=== PATIENT | male | born 1940 | race Caucasian/White ===

== ENCOUNTER 2025-04-03 10:19 | Observation (INO) ==
--- NOTE | 2025-02-28 13:31 | PAT Medication Instructions ---
Medication Instructions Date of Service February 28, 2025 Home Medications allopurinol 100 mg tablet 100 mg PO QAM allopurinol 300 mg tablet 300 mg PO QAM amlodipine 10 mg tablet 10 mg PO QAM amoxicillin 500 mg tablet 2,000 mg PO UD PRN carboxymethylcellulose sodium 1 % eye liquid gel drops 1 drp ophthalmic (eye) BID PRN cholecalciferol (vitamin D3) 50 mcg (2,000 unit) tablet 50 mcg PO BID cyclosporine 0.05 % eye drops 1 drp ophthalmic (eye) Q12H empagliflozin 25 mg tablet 25 mg PO QAM glipizide 5 mg tablet 5 mg PO BID lisinopril 2.5 mg tablet 2.5 mg PO HS menthol 10.5 % topical spray (Biofreeze (menthol)) 1 spray topical UD PRN multivitamin 1 tab PO QAM omega 9-gec-nuo-fish oil 60 mg-90 mg-500 mg capsule (Fish Oil) 2 cap PO BID pilocarpine HCl 5 mg tablet 5 mg PO BID vit C 250 mg-vit E 90 mg-zinc 40 mg-copper 1 ny-toohjb-aetpml capsule (PreserVision AREDS-2) 1 tab PO BID STOP 3 days before surgery empagliflozin 25 mg tablet 25 mg PO QAM Continue as directed amoxicillin 500 mg tablet 2,000 mg PO UD PRN(if needed) STOP taking 2 weeks before surgery (or as soon as possible if surgery is within 2 weeks) omega 8-jdx-nln-fish oil 60 mg-90 mg-500 mg capsule (Fish Oil) 2 cap PO BID vit C 250 mg-vit E 90 mg-zinc 40 mg-copper 1 lv-eiaevp-ilrcqd capsule (PreserVision AREDS-2) 1 tab PO BID STOP taking 24 hours before surgery menthol 10.5 % topical spray (Biofreeze (menthol)) 1 spray topical UD PRN DO NOT take the morning of surgery cholecalciferol (vitamin D3) 50 mcg (2,000 unit) tablet 50 mcg PO BID glipizide 5 mg tablet 5 mg PO BID multivitamin 1 tab PO QAM pilocarpine HCl 5 mg tablet 5 mg PO BID Take morning of surgery With a small sip of water, OTHERWISE NOTHING TO EAT OR DRINK AFTER MIDNIGHT: allopurinol 100 mg tablet 100 mg PO QAM allopurinol 300 mg tablet 300 mg PO QAM amlodipine 10 mg tablet 10 mg PO QAM carboxymethylcellulose sodium 1 % eye liquid gel drops 1 drp ophthalmic (eye) BID PRN(if needed) cyclosporine 0.05 % eye drops 1 drp ophthalmic (eye) Q12H Take evening before surgery carboxymethylcellulose sodium 1 % eye liquid gel drops 1 drp ophthalmic (eye) BID PRN(if needed) cholecalciferol (vitamin D3) 50 mcg (2,000 unit) tablet 50 mcg PO BID cyclosporine 0.05 % eye drops 1 drp ophthalmic (eye) Q12H glipizide 5 mg tablet 5 mg PO BID lisinopril 2.5 mg tablet 2.5 mg PO HS pilocarpine HCl 5 mg tablet 5 mg PO BID Other Notes If you have any questions please call us at [phone] or [phone] or [phone] or [phone]
--- NOTE | 2025-03-09 11:39 | Anesthesiology Consultation ---
Date of Service March 09, 2025 Assessment & Plan (1) Encounter for pre-operative examination: - Check BSG DOS - Infectious disease screening: Per assessment on 02/27/25- No known recent infectious disease contacts or current infectious disease symptoms. - Outpatient joint assessment: Pt currently scheduled for inpatient pathway. If surgeon requests review for outpatient joint pathway, patient is not recommended candidate for outpatient joint program from anesthesia standpoint based on available information. - Cardiology visit (10/27/23): "Hypertension: BP remains within normal limits today.. Will continue current medications.. Aortic regurgitation: Trivial on echo in August. No change from multiple prior echocardiograpms.. No need to repeat routine echocardiography at this point for this, but will be checked nonetheless as we follow his LV function as noted below.. Cardiomyopathy w/reduced LV systolic function.. Asymptomatic.. LVEF was lower limits of normal on recent echocardiogram.. No additional testing required at this time.. Will repeat an echo in two years.. Follow up: two years" - Preop testing: CXR done 03/09/25 noted "early pneumonia versus atelectasis or scarring left lung base." Also, creatinine elevated at 1.56. No reported history of CKD. Note written to PCP regarding abnormal preop CXR + elevated creatinine- Awaiting response (Shawna Sandoval PAC; LEONARDO [place]). Patient otherwise acceptable risk for surgery. Chart Review Chart Review: Patient seen in Pre Admission Testing Teaching & Discussion Pre-Anesthesia Teaching/Discussion Notes: Instructed NPO after midnight before surgery,except medications with 15 cc of water. Medication instructions provided according to the PAT guidelines. History Surgery Operation Date: 04/03/25 11:15 Proposed Procedures p Left Reverse Total Shoulder Arthroplasty - Tristan Mojica DO Height/Weight Height: 5 ft 10 in Weight: 94.9 kg Allergies Allergy/AdvReac Type Severity Reaction Status Date / Time metformin Allergy Intermediate Redness Verified 03/06/25 14:05 (back of knees) Kgnlxdf-OGV-QjT Reductase Allergy Mild Muscle Verified 03/06/25 14:05 Inhibitor soreness [Wvokulc-Ued-Szb Reductase Inhibitor] Medications Home Medications Medication Instructions Recorded Confirmed Last Taken allopurinol 100 mg tablet 100 mg PO QAM 02/27/25 02/27/25 Unknown allopurinol 300 mg tablet 300 mg PO QAM 02/27/25 02/27/25 Unknown amlodipine 10 mg tablet 10 mg PO QAM 02/27/25 02/27/25 Unknown amoxicillin 500 mg tablet 2,000 mg PO UD PRN prior to dental 02/27/25 02/27/25 Unknown procedure carboxymethylcellulose sodium 1 % 1 drp ophthalmic (eye) BID PRN Dry 02/27/25 02/27/25 Unknown eye liquid gel drops Eye(S) cholecalciferol (vitamin D3) 50 50 mcg PO BID 02/27/25 02/27/25 Unknown mcg (2,000 unit) tablet cyclosporine 0.05 % eye drops 1 drp ophthalmic (eye) Q12H 02/27/25 02/27/25 Unknown empagliflozin 25 mg tablet 25 mg PO QAM 02/27/25 02/27/25 Unknown glipizide 5 mg tablet 5 mg PO BID 02/27/25 02/27/25 Unknown lisinopril 2.5 mg tablet 2.5 mg PO HS 02/27/25 02/27/25 Unknown menthol 10.5 % topical spray 1 spray topical UD PRN Pain 02/27/25 02/27/25 Unknown (Biofreeze (menthol)) multivitamin 1 tab PO QAM 02/27/25 02/27/25 Unknown omega 6-ggs-zuv-fish oil 60 mg-90 2 cap PO BID 02/27/25 02/27/25 Unknown mg-500 mg capsule (Fish Oil) pilocarpine HCl 5 mg tablet 5 mg PO BID 02/27/25 02/27/25 Unknown vit C 250 mg-vit E 90 mg-zinc 40 1 tab PO BID 02/27/25 02/27/25 Unknown mg-copper 1 zi-kqdbfn-jituef capsule (PreserVision AREDS-2) Past Medical History Medical History Cardiomyopathy Most recent Echo 08/2023, 2 year f/u Echo recommended by cardio LVEF 45-50%, now 50-55% per 10/27/23 cardiology visit note Diabetes mellitus, type 2 Dry mouth Gout History of kidney cancer (2014) s/p left nephrectomy + partial right kidney resection History of migraine History of prostate cancer (2001) s/p prostatectomy Hypertension Macular degeneration Right bundle branch block (RBBB) Follows with Dr. Howell/LEONARDO Cyr Sleep apnea Non-compliant with CPAP Exercise / Class Metabolic Activity III < 4 Walking/Shop/Light housework Past Family History Family History Other No family history of adverse response to anesthesia Past Surgical History Surgical History History of colonoscopy History of kidney removal (2014) Left + partial resection on the right History of prostatectomy (2001) [facility] History of reverse total replacement of right shoulder joint (2015) History of sinus surgery History of tooth extraction Past Anesthesia History No Hx of Anesthesia Complications and No Family Hx of Anesthesia Complications History of PONV No Hx of Motion Sickness and History of PONV (+ nausea) Social History Smoking Status: Never smoker Do You Dip or Chew Tobacco: No Hx Alcohol Use: No Hx Substance Use: No substance use type: does not use Review of Systems Patient denies chest pain, shortness of breath, fever, chills, cough, wheezing. Physical Exam Vital Signs BP 112/64 P 57 TEMP 98.1 SP02 95%RA RESP 18 Physical Full cervical extension range of motion. Full TMJ range of motion. TMD 3 finger breaths Mallampati Score III Dentition: upper front "removable" tooth Lungs: clear throughout to auscultation Cardiac: regular rate and rhythm, distant heart sounds Spine: normal Carotid arteries: negative bruit Extremities: no LE edema Lab Results Anesthesia Preop Results Results Anesthesia Widget: WBC 7.86 K/ul (4.8-10.8) 03/09/25 Hgb 15.9 g/dl (14.0-18.0) 03/09/25 Hct 47.9 % (42.0-52.0) 03/09/25 Plt 206 K/uL (130-400) 03/09/25 Na 136 mmol/L (136-145) 03/09/25 K 4.3 mmol/L (3.5-5.1) 03/09/25 Cl 102 mmol/L (98-107) 03/09/25 CO2 26 mmol/L (21-32) 03/09/25 BUN 38 mg/dl (6-23) H 03/09/25 Creat 1.56 mg/dl (0.6-1.4) H 03/09/25 Glucose Level 247 mg/dl (70-99(Fasting)) H 03/09/25 PT 10.0 Seconds (9.0-12.0) 03/09/25 PTT 30 Seconds (21-31) 03/09/25 INR 0.9 (0.9-1.1) 03/09/25 HA1c 7.6 % (4.5-5.6) H 03/09/25 Blood Type O Positive 03/09/25 Antibody Screen NEGATIVE 03/09/25 Testing Laboratory Results Surgeon's office made aware of elevated glucose/A1C* Electrocardiogram Date: 03/09/25 SB with first degree AVB at 50bpm. RBBB. Chest X-Ray Date: 03/09/25 FINDINGS: Heart size and pulmonary vasculature are normal. There is mild stranding opacity at the left lung base, increased. No other consolidation or pleural effusion. IMPRESSION: Early pneumonia versus atelectasis or scarring left lung base. Echocardiogram Date: 09/04/23 EF 50-55%. No RWMA. Mild LAD. Normal RVSP. Physiologic TR.
--- NOTE | 2025-03-30 12:03 | History & Physical Report ---
Date of Service March 30, 2025 Assessment & Plan (1) Rotator cuff arthropathy: We will proceed with a left reverse shoulder arthroplasty. Postoperatively, he will be placed in a sling and will be kept overnight in the hospital for postop medical management. He plans to have the hospital set up home health for discharge. History of Present Illness Chief Complaint: Cuff tear arthropathy left shoulder. Primary Care Provider: NO PCP Clovis is a pleasant 84-year-old male who I did a right reverse shoulder replacement on in the past. He did very well with that. Unfortunately, he is now dealing with left shoulder pain. He said he fell about 5 years ago onto a concrete floor. He was having back pain and shoulder pain. Over the years, his shoulders got much worse. He has trouble doing things away from his body or up overhead. X-rays and clinical exam have been diagnostic for cuff tear arthropathy left shoulder. After failing conservative treatment, he has elected proceed with a left reverse shoulder arthroplasty. Allergies Allergy/AdvReac Type Severity Reaction Status Date / Time metformin Allergy Intermediate Redness Verified 03/06/25 14:05 (back of knees) Hkveljk-XRA-NjN Reductase Allergy Mild Muscle Verified 03/06/25 14:05 Inhibitor soreness [Idjufpf-Lpr-Lnk Reductase Inhibitor] Home Medications Medication Instructions Recorded Confirmed Type allopurinol 100 mg tablet 100 mg PO QAM 02/27/25 02/27/25 History allopurinol 300 mg tablet 300 mg PO QAM 02/27/25 02/27/25 History amlodipine 10 mg tablet 10 mg PO QAM 02/27/25 02/27/25 History amoxicillin 500 mg tablet 2,000 mg PO UD PRN prior to dental 02/27/25 02/27/25 History procedure carboxymethylcellulose sodium 1 % 1 drp ophthalmic (eye) BID PRN Dry 02/27/25 02/27/25 History eye liquid gel drops Eye(S) cholecalciferol (vitamin D3) 50 50 mcg PO BID 02/27/25 02/27/25 History mcg (2,000 unit) tablet cyclosporine 0.05 % eye drops 1 drp ophthalmic (eye) Q12H 02/27/25 02/27/25 History empagliflozin 25 mg tablet 25 mg PO QAM 02/27/25 02/27/25 History glipizide 5 mg tablet 5 mg PO BID 02/27/25 02/27/25 History lisinopril 2.5 mg tablet 2.5 mg PO HS 02/27/25 02/27/25 History menthol 10.5 % topical spray 1 spray topical UD PRN Pain 02/27/25 02/27/25 History (Biofreeze (menthol)) multivitamin 1 tab PO QAM 02/27/25 02/27/25 History omega 5-ylq-hjr-fish oil 60 mg-90 2 cap PO BID 02/27/25 02/27/25 History mg-500 mg capsule (Fish Oil) pilocarpine HCl 5 mg tablet 5 mg PO BID 02/27/25 02/27/25 History vit C 250 mg-vit E 90 mg-zinc 40 1 tab PO BID 02/27/25 02/27/25 History mg-copper 1 uq-fgolvw-hglnfy capsule (PreserVision AREDS-2) Past Med/Surg History Problem List Encounter for pre-operative examination Rotator cuff arthropathy Medical History Chronic kidney disease (CKD) Stage 3a Cardiomyopathy Most recent Echo 08/2023, 2 year f/u Echo recommended by cardio LVEF 45-50%, now 50-55% per 10/27/23 cardiology visit note Gout Dry mouth Diabetes mellitus, type 2 Macular degeneration History of migraine Hypertension Right bundle branch block (RBBB) Follows with Dr. Howell/LEONARDO Cyr History of kidney cancer (2014) s/p left nephrectomy + partial right kidney resection History of prostate cancer (2001) s/p prostatectomy Sleep apnea Non-compliant with CPAP Surgical History History of colonoscopy History of tooth extraction History of sinus surgery History of reverse total replacement of right shoulder joint (2015) History of prostatectomy (2001) [facility] History of kidney removal (2014) Left + partial resection on the right Family History Other No family history of adverse response to anesthesia Social History Smoking Status: Never smoker Second Hand Exposure: No; Do You Dip or Chew Tobacco: No; Tobacco Cessation Education Requested by Patient: No Hx Alcohol Use: No Hx Substance Use: No Preferred Language: Yi Communication Ability: Effective 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 Physical Exam On physical exam of the left shoulder, he has decreased range of motion and weakness throughout.. Constitutional WD/WN, vitals as above Eyes PERRL, conjunctivae normal, anicteric sclerae ENMT external ear and nose normal, oropharynx normal Neck trachea midline, no thyromegaly Respiratory normal respiratory effort Cardiovascular RRR, no murmur, no edema Gastrointestinal (Abdomen) normal bowel sounds, soft, nontender, no hepatosplenomegaly Psychiatric A+Ox3, euthymic affect Results & Data Results & Data Laboratory Results . Diagnostic Findings X-rays of the left shoulder show cuff tear arthropathy with superior migration of the humeral head on the glenoid and moderate glenohumeral arthritis.. PG Care Time/CCT Total # of Minutes Spent Total Time Spent with Patient: Total time spent is greater than 50% in coordination of care (as documented) at patient's floor/unit and/or counseling patient: Coding Level of Care Code None Diagnoses Rotator cuff arthropathy M12.819
[~2025-04-03 10:19] MED LIST: BUPIVACAINE 0.5 % 5 MG/1 ML PF 10ML VIAL ONE
[2025-04-03] MEDS ORDERED: DEXAMETHASONE SOD INJ 4 MG/ML VIAL ONE (10:25)
[2025-04-03] MEDS ORDERED: ONDANSETRON INJ 2 MG/ML 2 ML VIAL ONE (10:25)
[2025-04-03] MEDS ORDERED: PROPOFOL IV EMULSION 10 MG/ML 20 ML VIAL IV ONE (10:25)
[2025-04-03] MEDS ORDERED: MIDAZOLAM HCL 1 MG/ML 2ML VIAL ONE (10:27)
[2025-04-03] MEDS: LR 60ML/HR IV SCH (10:32)
--- NOTE | 2025-04-03 11:16 | History & Physical Bridge Note ---
Date of Service April 03, 2025 History & Physical Bridge Note I have examined the patient, reviewed the History & Physical and in the interval since the performance of the History & Physical I have noted the following changes of clinical significance: no changes noted
[2025-04-03] MEDS: LR 15ML/HR IV SCH (11:17)
[2025-04-03] MEDS ORDERED: ATROPINE SULFATE 0.1 MG/ML 10ML SYR IV PRN (11:26)
[2025-04-03] MEDS: FAMOTIDINE 20 MG TAB PO SCH (11:26)
[2025-04-03] MEDS ORDERED: ONDANSETRON INJ 2 MG/ML 2 ML VIAL IV PRN ×2 (11:26→14:46)
[2025-04-03] MEDS: GABAPENTIN 300 MG CAP PO SCH (11:26)
[2025-04-03] MEDS ORDERED: HYDROmorphone INJ 1 MG/ML SYRINGE IV PRN (11:26)
[2025-04-03] MEDS: dexAMETHasone**PF** 10 MG/ML VIAL IV SCH (11:26)
[2025-04-03] MEDS: ACETAMINOPHEN 500 MG TAB PO SCH ×2 (11:42→15:11)
[2025-04-03] MEDS: TRANEXAMIC ACID 1,000 MG **IV Pre-op IV SCH (12:05)
[2025-04-03] MEDS ORDERED: PHENYLEPHRINE 100MCG/ML 10ML SYR IV ONE (12:41)
[2025-04-03] MEDS ORDERED: ROCURONIUM BROMIDE 10 MG/ML 5 ML VIAL IV ONE (12:41)
[2025-04-03] MEDS: ORTHO JOINT ANESTHETIC ONE (12:52)
[2025-04-03] MEDS: ROPIV 0.5% 246mg, Ketorolac 30mg, EPINEPHrine 0.5mg in NSS INFIL SCH (13:18)
[2025-04-03] MEDS ORDERED: SUGAMMADEX SODIUM 200 MG/2 ML VIAL IV ONE (13:18)
--- NOTE | 2025-04-03 13:20 | Operative Report ---
PG Post Operative Report Pre & Post Diagnosis Operation Date: 04/03/25 12:00 Pre-Op Diagnosis: Cuff tear arthropathy left shoulder with tendinopathy long head of the biceps tendon Post-Op Diagnosis: Cuff tear arthropathy left shoulder with tendinopathy long head of the biceps tendon I identified the patient and participated in the time-out.: Yes Procedure Operation Date: 04/03/25 12:00 Actual Procedures p Left Reverse Total Shoulder Arthroplasty(Left) with open biceps tenodesis as a distinct and separate procedure (modifier 59)- Tristan Mojica DO Surgeon Tristan Mojica DO Senior Java J2Ee Developer Thai Cheema PA-C Estimated Blood Loss 200 Findings Consistent with Post-Op Diagnosis Specimens Left humeral head Description of Procedure A CPT code modifier 59: The long head of the biceps tendon was enlarged and inflamed consistent with tendinopathy. A tenodesis was opted. This was a separate and distinct portion of the procedure. For these reasons, a CPT code modifier 59 will be added to this case. Implants used: I used a [employer]omet Comprehensive reverse total shoulder arthroplasty system with a size 14 press fit micro humeral stem, a standard humeral tray and a +3 retentive humeral bearing, a 25 mm medium augment baseplate with a 6.5 mm central screw and superior and inferior locking screws, and a size 36 mm eccentric glenosphere. Clovis arrived at [facility] for the above procedure. He was seen in the preoperative holding area and the operative extremity was identified and signed. He was given a preoperative antibiotic, TXA, and an interscalene nerve block. He was taken back to the operating room, laid on table in supine position, and put under general anesthesia. He was then put into the beachchair position. The shoulder was then prepped and draped in sterile fashion. A timeout was done and the patient and the operative extremity was properly identified. A deltopectoral approach was used. Dissection was taken down through the fascia and the deltoid was retracted laterally and the conjoined tendon was retracted medially. The anterior shoulder was exposed. The biceps groove was opened up and the biceps tendon was examined extensively. The biceps tendon demonstrated enlargement and inflammatory changes consistent with longstanding inflammation in the context of osteoarthritis and cuff arthropathy. The long head of the biceps tendon was then tenodesed to the upper border of the pectoralis major. This was a separate and distinct portion of the procedure. The subscapularis was then directly released off the lesser tuberosity with a peel technique. The inferior capsule was released and the humeral head was dislocated. A canal finding reamer was sent down the center of the humeral canal. Sequential reaming up to a size 14 reamer was done. Off that reamer, a proximal humeral resection guide was placed. The proximal humerus was resected at 135 of inclination and 25 of retroversion. Osteophytes were then removed and the glenoid was exposed. Time was spent doing a complete capsular and labral release. The glenoid guide was then placed in the inferior aspect of the glenoid. A 3.2 mm Steinmann pin was then placed into the glenoid vault at 10 of inclination. The glenoid baseplate was then reamed. The final size 25 mm medium augment baseplate was then impacted in the place. A 6.5 mm central screw was then placed followed by superior and inferior locking screws. A 36 mm eccentric glenosphere was then impacted into place. Surrounding soft tissues were then injected with 100 cc an orthopedic pain control cocktail. The proximal humerus was then exposed. Sequential broaching of the humerus up to a size 14 broach was done. Off that broach a +3 retentive humeral tray was trialed. The shoulder was then reduced, brought through a full range of motion, and felt to be stable. The shoulder was then dislocated and the broach was removed. The final size 14 micro press-fit humeral stem was then impacted into place. A +3 retentive humeral bearing was then snapped onto a standard humeral tray. The humeral tray was then impacted onto the humeral stem. The shoulder was once again reduced, brought through a full range of motion, and felt to be stable. The subscapularis was poor quality and unable to be repaired.. A dilute betadyne lavage was then done for 3 minutes. The joint was then irrigated with normal saline solution. Hemostasis was obtained. The interval was closed with 2-0 Vicryl suture. The skin was then closed with 2-0 Vicryl and corbin. A Silverlon dressing was placed and the arm was rested in a regular arm sling. He was then extubated and transferred to a hospital bed. He taken to the postanesthesia care unit in stable condition. He tolerated the procedure well. Thai Cheema PA-C, was present for the entire procedure. He was critical for patient positioning, prepping, draping, retraction exposure, wound closure and application of sterile dressing. I attest to the content of the Intraoperative Record and any orders documented therein. Any exceptions are noted below.
--- NOTE | 2025-04-03 14:15 | XRay Report ---
XR shoulder LT min 2V routine CLINICAL HISTORY: Post shoulder surgery. COMPARISON: Left shoulder radiographs January 24, 2025. FINDINGS: Alignment of the reverse total left shoulder arthroplasty is anatomic. There is no peripro sthetic fracture or unexpected radiopaque foreign body. IMPRESSION: Expected findings following total left shoulder arthroplasty. ACT 112: Negative or not required by law. Electronically signed by: Krzysztof Lozano M.D. 04/03/2025 2:13 PM
[2025-04-03] MEDS ORDERED: HYDROmorphone INJ 0.5 MG/0.5 ML SYR IV PRN (14:46)
[2025-04-03] MEDS ORDERED: MAGNESIUM HYDROXIDE SUSP 30 ML UDC PO PRN (14:46)
[2025-04-03] MEDS ORDERED: PHARMACY GLYCEMIC MGMT CONSULT PRN (14:46)
[2025-04-03] MEDS ORDERED: NALOXONE HCL 0.4 MG/1 ML VIAL/CARP IV PRN (14:46)
[2025-04-03] MEDS ORDERED: METOCLOPRAMIDE HCL INJ 5 MG/ML 2 ML VIAL IV PRN (14:46)
[2025-04-03] MEDS: BUPIVACAINE LIPOSOME 1.3% 133 MG/10 ML VIAL ONE (14:49)
[2025-04-03 15:01] VITALS: RESP 18
[2025-04-03] MEDS: SODIUM CHLORIDE 0.9% 1,000 ML IV SCH (15:04)
[2025-04-03] MEDS: KETOROLAC TROMETHAMINE 15 MG/ML VIAL IV SCH (15:11)
--- NOTE | 2025-04-03 16:27 | Anesthesiology Progress Note ---
Date of Service April 03, 2025 Anesthesia Post Procedure Vital Signs Vital Signs: Temp Pulse Pulse Resp BP Pulse Ox O2 Del Method 04/03/25 15:30 75 18 115/55 L 95 Room Air 04/03/25 15:12 36.4 C L 72 18 108/62 97 Nasal Cannula 04/03/25 14:45 Room Air 04/03/25 14:45 36.4 C 77 18 108/62 95 Nasal Cannula 04/03/25 14:30 76 16 113/58 L 96 Nasal Cannula 04/03/25 14:20 75 16 105/58 L 95 Nasal Cannula 04/03/25 14:10 36.4 C L 76 16 114/61 95 Room Air 04/03/25 14:00 69 12 104/58 L 97 Oxymask 04/03/25 13:50 75 18 113/62 98 Oxymask 04/03/25 13:43 36.0 C L 87 14 104/65 98 Oxymask 04/03/25 10:51 36.8 C 81 20 161/88 H 99 Room Air O2 Flow Rate 04/03/25 15:30 04/03/25 15:12 2 04/03/25 14:45 04/03/25 14:45 2 04/03/25 14:30 2 04/03/25 14:20 2 04/03/25 14:10 04/03/25 14:00 4 04/03/25 13:50 4 04/03/25 13:43 6 04/03/25 10:51 Transfer of Care Handoff Completed per policy Notes Mental Status: alert / awake / arousable and participated in evaluation Patient Amnestic to Procedure: Yes Nausea / Vomiting: adequately controlled Pain: adequately controlled Airway Patency, RR, SpO2: stable & adequate BP & HR: stable & adequate Hydration State: stable & adequate Anesthetic Complications: no major complications apparent and Pt Satisfied with anesthetic care
[2025-04-03] MEDS: INSULIN ASPART PER UNIT CHARGE SC SCH (17:03)
[2025-04-03] MEDS: LANTUS PER UNIT CHARGE SC ONE (18:05)
[2025-04-03] MEDS ORDERED: glipiZIDE 5 MG TAB PO SCH (21:00)
[2025-04-03] MEDS: DOCUSATE SODIUM 100 MG CAP PO SCH (21:31)
[2025-04-03] MEDS: SENNA 8.6 MG TAB PO SCH (21:31)
[2025-04-03] MEDS: PILOCARPINE HCL 5 MG TABLET PO SCH (21:33)
[2025-04-04 03:10] VITALS: TEMP 98.1
[2025-04-04 07:48] VITALS: BP 126/69; PULSE 79; O2SAT 94
[2025-04-04] MEDS: MULTIVITAMIN TAB PO SCH (08:03)
[2025-04-04] MEDS: LANTUS PER UNIT CHARGE SC SCH (08:37)
[2025-04-04] MEDS ORDERED: EMPAGLIFLOZIN 25 MG TAB PO SCH (09:00)
--- NOTE | 2025-04-04 09:56 | Orthopedic Progress Note ---
Date of Service April 04, 2025 Assessment & Plan (1) Status post reverse total arthroplasty of left shoulder: * Continue Current Treatment * Disposition: home * Daily treatment: Physical Therapy/ Occupational Therapy per protocol * Weight bearing status: NWB LUE * Continue to monitor for ABLA * Pain control * DVT prophylaxis, ASA * Office/hospital f/u 2 weeks for progress check and staple/suture removal * Plan for discharge today pending PT/OT clearance Subjective .Active Problems: S/p left rTSA POD 1 84 y/o male s/p left rTSA. Doing well overall, pain managed and improved function. Denies fever/chills, chest pain/SOB, nausea/vomiting. Otherwise no complaints. Review of Systems All systems reviewed & are unremarkable except as noted in HPI & below. Physical Exam . .Left shoulder surgical dressing CDI, not removed for exam. Otherwise no obvious deformity or overlying skin changes. Diffuse TTP upper arm and shoulder region. Otherwise no specific tenderness of upper arm, elbow, forearm, wrist/hand. AROM shoulder not assessed. AROM elbow, wrist/hand intact. Sensation intact radial/median/ulnar nerve distributions. Brisk capillary refill. Results & Data Results & Data Laboratory Results . Diagnostic Findings . Shoulder X-Ray 04/03/25 13:46 XR shoulder LT min 2V routine CLINICAL HISTORY: Post shoulder surgery. COMPARISON: Left shoulder radiographs January 24, 2025. FINDINGS: Alignment of the reverse total left shoulder arthroplasty is anatomic. There is no periprosthetic fracture or unexpected radiopaque foreign body. IMPRESSION: Expected findings following total left shoulder arthroplasty. ACT 112: Negative or not required by law. Electronically signed by: Krzysztof Lozano M.D. 04/03/2025 2:13 PM PG Care Time/CCT Total # of Minutes Spent Total Time Spent with Patient: Total time spent is greater than 50% in coordination of care (as documented) at patient's floor/unit and/or counseling patient: Coding Level of Care Code 75851 Post Operative Follow-Up Diagnoses Status post reverse total arthroplasty of left shoulder Z96.612
--- NOTE | 2025-04-04 10:13 | Pharmacy Report ---
Pharmacy Glycemic Short Note 2 - Date of Service April 04, 2025 - Glycemic Short BSG Results (Last 24 hours): 04/03/25 04/03/25 04/03/25 10:45 13:46 16:27 POC Glucose 156 H 169 H 234 H 04/03/25 04/04/25 20:57 07:13 POC Glucose 285 H 155 H OUTPATIENT ANTIDIABETIC REGIMEN: * Jardiance 25 mg PO Daily * Glipizide 5mg PO BID * A1c 7.6% 03/09/25 ASSESSMENT: * 84 yo POD1 shoulder arthroplasty, hyperglycemic yesterday d/t IV steroids preop, patient received 25 units of insulin yesterday, BSG at goal today, no further steroids ordered. * Continue Basal/Bolus insulin while inpatient. * Plan for DC today pending PT/OT Clearance. PLAN FOR INPATIENT GLYCEMIC CONTROL: * Hold outpatient oral diabetes medications * Basal insulin * Lantus 8 units SQ daily * Bolus insulin * NovoLog per scale ACHS or Q6hrs while NPO * Goal Range: Low 110 mg/dL - High 140 mg/dL * Correction Factor: 25 mg/dL/unit * Nutritional / Prandial insulin per carb ratio of 1 unit per 8 grams CHO consumed
== END 2025-04-04 13:56 | disposition home or self-care (01) ==
LOC: ASU 10:19 → 3W 10:19